=== PATIENT | female | born 1960 | race Caucasian/White ===

== ENCOUNTER 2018-03-29 12:38 | Emergency (ER) | payer OTHER ==
[2018-03-29] MEDS ORDERED: ALBUTEROL SO4 0.083% IH SOL 2.5 MG/3 ML VIAL.NEB. NEB ONE ×2 (13:10→13:15)
[2018-03-29 13:13] VITALS: TEMP 98.6; BMI 24.6
[2018-03-29] MEDS ORDERED: predniSONE 20 MG TABLET (UD) PO ONE (13:33)
--- NOTE | 2018-03-29 13:33 | PDOC ---
History of Present Illness - General Chief Complaint: Cold Symptoms Stated Complaint: SOB Time Seen by Provider: 03/29/18 12:52 History Source: Patient, Old Records Exam Limitations: No Limitations - History of Present Illness Initial Comments: 57 y/o female presenting to [facility] ER via private auto complaining of non- productive coughing episodes for the past 4-5 days. Endorses chills without diaphoresis or fever. Denies nausea, vomiting, abdominal pain, constipation, or diarrhea. Was evaluated at this facility in February for similar symptoms, and discharged home with a prescription for albuterol. She has used the MDI "a few times" without relief. No known history of asthma or other pulmonary conditions. Endorses history of GERD. PCP: Dr. Heard Past History - Past Medical History Allergies/Adverse Reactions: Allergies Allergy/AdvReac Type Severity Reaction Status Date / Time No Known Allergies Allergy Verified 02/27/18 09:38 Home Medications: Ambulatory Orders Carbamazepine [Tegretol -] 600 mg PO HS 10/27/15 Albuterol Sulfate Inhaler - [Ventolin Hfa Inhaler -] 1 - 2 inh PO Q4H PRN #1 inhaler 02/27/18 Lamotrigine 200 mg PO HS 02/27/18 Simvastatin 40 mg PO DAILY 02/27/18 Benzonatate [Tessalon Pearls -] 100 mg PO TID #21 capsule 03/29/18 Loratadine 10 mg PO DAILY PRN #20 tablet 03/29/18 predniSONE [Deltasone -] 40 mg PO DAILY 4 Days #4 tablet 03/29/18 COPD: No Hypercholesterolemia: (high triglyceride) Psychiatric Problems: Yes (BIPOLAR) Seizures: Yes - Surgical History Gastric Stapling: No (gastric sleeve) - Suicide/Smoking/Psychosocial Hx Smoking History: Former smoker Have you smoked in the past 12 months: No Number of Cigarettes Smoked Daily: 40 If you are a former smoker, when did you quit?: 12/2017 Information on smoking cessation initiated: No 'Breaking Loose' booklet given: 02/27/18 Hx Alcohol Use: No Drug/Substance Use Hx: No Substance Use Type: None Hx Substance Use Treatment: No Review of Systems - Review of Systems Able to Perform ROS?: Yes Is the patient limited Wolof proficient: No Constitutional: Yes: Chills. No: Diaphoresis, Fever HEENTM: Yes: Nose Congestion. No: Throat Pain Respiratory: Yes: Cough, Shortness of Breath. No: Orthopnea, Productive cough, Hemoptysis Cardiac (ROS): No: Chest Pain, Syncope ABD/GI: No: Constipated, Diarrhea, Nausea, Vomiting, Abdominal cramping : No: Burning, Dysuria, Frequency, Hematuria Musculoskeletal: No: Back Pain Integumentary: No: Rash Hematologic/Lymphatic: No: Easy Bleeding, Easy Bruising *Physical Exam - Vital Signs Last Vital Signs Temp Pulse Resp BP Pulse Ox 98.6 F 88 18 136/82 94 L 03/29/18 13:03/29/18 13:03/29/18 13:03/29/18 13:03/29/18 13:09 - Physical Exam Comments: Constitutional: Well-developed, well-nourished female in no acute distress. Found semi-fowlers in hospital bed. Alert and oriented x4. Answered all questions appropriately and completely. Speech was non-labored, non-pressured. HEENT: Normocephalic. No obvious external signs of trauma. Hearing grossly normal. No nasal discharge. Neck is supple, trachea is midline. Cardiovascular: Regular rate and regular rhythm. No murmur, rubs, clicks, or gallops. Peripheral pulses: Radial pulses full. Respiratory: Breathing unlabored. Equal chest rise and fall. Mild diffuse rhonchi and wheezing throughout. No stridor. Gastrointestinal: abdomen is soft, non-tender, non-distended. Neuro: Alert and oriented. Moving all four extremities spontaneously. Skin: Warm, dry, and intact. No bruising, rashes, or other lesions. Psych: Affect: appropriate. Mood: normal ED Treatment Course - RADIOLOGY Radiology Studies Ordered: Category Date Time Status CHEST PA & LAT [RAD] Stat Radiology 03/29/18 13:09 Ordered - Medications Given in the ED: ED Medications Discontinued Medications Generic Name Dose Route Start Last Admin Trade Name Freq PRN Reason Stop Dose Admin Albuterol Sulfate 1 amp 03/29/18 13:10 03/29/18 13:18 Ventolin 0.083% Nebulizer Soln - NEB 03/29/18 13:11 1 amp ONCE ONE Administration Medical Decision Making - Medical Decision Making 57 y/o female with nonproductive cough. Afebrile. Vitals unremarkable. Mild diffuse rhonchi and wheeze. Suspect asthma vs COPD vs pneumonia vs bronchitis. Will obtain CXR to further evaluate. Ordered Duoneb and prednisone for symptom relief. Pt reports feeling "much better" after duoneb. Repeat auscultation revealed rhonchi continues with more pronounced wheezing. CXR unchanged from prior study 5 weeks ago. No acute cardiopulmonary process. Repeat auscultation revealed much improved rhonchi and wheezing. Pt stable for discharge. Discussed normal imaging results with pt. Answered all questions. Provided return precautions. Pt expressed verbal understanding and agreement with plan to discharge home with outpatient PCP follow up. Prescription for tessalon perles, prednisone, and albuterol inhaler sent to pharmacy of record. *DC/Admit/Observation/Transfer Diagnosis at time of Disposition: Wheezing, Cough - Discharge Dispostion Disposition: HOME Condition at time of disposition: Good Decision to Admit order: No - Prescriptions Prescriptions: Benzonatate [Tessalon Pearls -] 100 mg PO TID #21 capsule Loratadine 10 mg PO DAILY PRN #20 tablet PRN Reason: Allergy Symptoms predniSONE [Deltasone -] 40 mg PO DAILY 4 Days #4 tablet - Referrals Referrals: Antelmo Heard MD [Primary Care Provider] - - Patient Instructions Printed Discharge Instructions: How to Avoid a Cold or Flu Additional Instructions: I have sent three prescriptions to [facility] for you. Please take these as directed. Follow up with your primary care doctor within the next 3-4 days. You will need to call to make an appointment. The number is included in this packet. Come back to the emergency department if your conditions worsen or you feel like you need additional emergency evaluation. Print Language: CITIZEN OF [place] - Post Discharge Activity
[2018-03-29] MEDS ORDERED: ALBUTEROL SO4 2.5/IPRATROPIUM 0.5 INH SOL 3 ML VIAL.NEB. NEB ONE ×2 (13:34→13:36)
[2018-03-29] MEDS ORDERED: predniSONE 20 MG TABLET (UD) ONE (13:36)
--- NOTE | 2018-03-29 13:42 | PDOC ---
Attending Attestation - Resident Resident Name: CraftAashish - ED Attending Attestation I have performed the following: I have examined & evaluated the patient, The case was reviewed & discussed with the resident, I agree w/resident's findings & plan, Exceptions are as noted - HPI HPI: 03/29/18 13:37 57-year-old female with past medical history of significant smoking history presents with shortness of breath and wheezing. The patient reports several days of nonproductive cough but no fevers and chills. Reports some tightness. Patient was here several weeks ago for some her symptoms and was diagnosed with having asthma-like symptoms. Was treated with nebulizers and steroids and improved significantly. Patient believes that the weather changes is provoking her symptoms. - Physicial Exam PE: 03/29/18 13:39 GENERAL: Awake, alert, and fully oriented, in no acute distress HEAD: No signs of trauma EYES: EOMI, sclera anicteric, conjunctiva clear ENT: Auricles normal inspection, hearing grossly normal, nares patent NECK: Normal ROM, supple, LUNGS: Diffuse expiratory wheezing bilaterally. HEART: Regular rate and rhythm, normal S1 and S2, no murmurs, rubs or gallops EXTREMITIES: Normal range of motion, no edema. No clubbing or cyanosis. No cords, erythema, or tenderness NEUROLOGICAL: Cranial nerves II through XII grossly intact. Normal speech, normal gait SKIN: Warm, Dry, normal turgor, no rashes or lesions noted. - Medical Decision Making 03/29/18 13:40 Vital Signs Temp Pulse Resp BP Pulse Ox 98.6 F 88 18 136/82 94 L 03/29/18 13:09 03/29/18 13:09 03/29/18 13:09 03/29/18 13:09 03/29/18 13:09 I suspect patient is having an asthma exacerbation. I agree with resident's findings obtain a chest x-ray without pneumonia. 2 nabs, prednisone. If workup is unremarkable and the patient reports feeling better, we'll discharge with albuterol and prednisone and follow-up with her primary care physician. 03/29/18 14:43 Chest xray reviewed. No acute infiltrates.
[2018-03-29 15:18] VITALS: BP 127/79; PULSE 86
== END 2018-03-29 15:18 | disposition home or self-care (01) ==
LOC: JER 12:38
PROC: 3E0F7GC Introduction of Other Therapeutic Substance into Respiratory Tract, Via Natural or Artificial Opening (ICD-10-PCS; principal; 2018-03-29)
PROC: 3E0F7GC Introduction of Other Therapeutic Substance into Respiratory Tract, Via Natural or Artificial Opening (ICD-10-PCS; 2018-03-29)
DX: J45.901 Unspecified asthma with (acute) exacerbation (principal); Z87.891 Personal history of nicotine dependence; F31.9 Bipolar disorder, unspecified; G40.909 Epilepsy, unspecified, not intractable, without status epilepticus; E78.5 Hyperlipidemia, unspecified
CPT/HCPCS: 71046-TC-FY; 94640; 99282-25; J7620

== ENCOUNTER 2021-06-28 06:47 | Emergency (ER) | payer OTHER ==
[2021-06-28 07:18] VITALS: BP 147/81; PULSE 74; TEMP 98.4; BMI 27.3
[2021-06-28] MEDS ORDERED: LIDOCAINE 5% TOPICAL PATCH TP ONE (07:52)
[2021-06-28] MEDS ORDERED: LIDOCAINE 5% TOPICAL PATCH ONE (08:14)
[2021-06-28 08:53] LABS: BASO % 0.4 % (0-2.0); EOS % 1.9 % (0-4.5); HEMATOCRIT 37.3 % (32.4-45.2); HEMOGLOBIN 12.5 GM/dL (10.7-15.3); LYMPH % 24.6 % (8-40); MCH 30.7 pg (25.7-33.7); MCHC 33.5 g/dl (32.0-36.0); MEAN CELL VOLUME 91.5 fl (80-96); MEAN PLT VOLUME 7.6 fl (7.5-11.1); MONO % 11.1 % (3.8-10.2); PLATELET COUNT 329 10^3/uL (134-434); RBC 4.07 M/mm3 (3.60-5.2); RDW 14.9 % (11.6-15.6); WHITE BLOOD COUNT 7.9 K/mm3 (4.0-10.0)
[2021-06-28 09:08] LABS: CHLORIDE 107 mmol/L (98-107); SODIUM 140 mmol/L (136-145)
[2021-06-28 09:10] LABS: ALBUMIN 3.5 g/dl (3.4-5.0); ANION GAP 10 MMOL/L (8-16); CALCIUM 8.8 mg/dL (8.5-10.1); CO2 24 mmol/L (21-32)
[2021-06-28 09:11] LABS: BLOOD UREA NITROGEN 17.1 mg/dL (7-18); GLUCOSE,RANDOM 104 mg/dL (74-106)
[2021-06-28 09:13] LABS: CREATININE 0.6 mg/dL (0.55-1.3)
[2021-06-28 09:14] LABS: SGOT/AST 15 U/L (15-37); SGPT/ALT 26 U/L (13-61)
[2021-06-28 09:15] LABS: BILIRUBIN,TOTAL 0.3 mg/dL (0.2-1); TOT PROT 7.2 g/dl (6.4-8.2)
[2021-06-28 09:16] LABS: ALK PHOS 123 U/L (45-117)
[2021-06-28] MEDS ORDERED: LIDOCAINE PATCH REMOVAL MC ONE (22:00)
== END 2021-06-28 10:13 | disposition home or self-care (01) ==
LOC: JER 06:47
DX: M25.512 Pain in left shoulder (principal)
CPT/HCPCS: 36415; 71046-TC-FY; 73030-TC-LT-FY; 80053; 84484; 85025; 93005; 93010; 99284-25